=== PATIENT | male | born 1995 | race Caucasian/White ===

== ENCOUNTER 2020-10-16 09:23 | Emergency (ER) | payer OTHER ==
[~2020-10-16] VITALS: Ht 167.6 cm; Wt 68.0 kg
[2020-10-16 09:42] VITALS: BP 122/77
[2020-10-16] MEDS ORDERED: KETOROLAC TROMETHAMINE INJ 30 MG/ML VIAL ONE (10:10)
--- NOTE | 2020-10-16 10:15 | NUR ---
YAYA SWENSON Escorted by Officer [place] [id number] for [employer] to [employer]. Rates back pain 6/10. No apparent injury noted. Will continue to monitor the patient.
[2020-10-16] MEDS ORDERED: KETOROLAC TROMETHAMINE INJ 60 MG/2 ML VIAL IM ONE (10:30)
[2020-10-16] MEDS ORDERED: IBUP-1955 PO (10:45)
--- NOTE | 2020-10-16 10:55 | NUR ---
Patient to [employer] custody Medically Cleared for booking. S table condition. Written and verbal after care instructions given. Patient verbalizes understanding of instruction.
== END 2020-10-16 10:54 ==
LOC: ER 09:25
DX: S39.012A Strain of muscle, fascia and tendon of lower back, initial encounter (principal); V09.9XXA Pedestrian injured in unspecified transport accident, initial encounter; Y93.89 Activity, other specified; Y92.89 Other specified places as the place of occurrence of the external cause; Y99.8 Other external cause status
CPT/HCPCS: 72100; 96372; 99283; J1885